=== PATIENT | male | born 1965 | race Caucasian/White ===

== ENCOUNTER → 2024-03-01 13:00 | Outpatient (CLI) | payer OTHER, SELFPAY ==
[2024-03-05 14:40] LABS: Fecal Immunochemical Test Negative (Negative)
== END ==
PROVIDERS: PCP Family Medicine; Visit Provider Family Medicine
DX: Z12.11 Encounter for screening for malignant neoplasm of colon (principal)
CPT/HCPCS: 82274

== ENCOUNTER → 2024-03-22 10:54 | Outpatient (CLI) | payer OTHER, SELFPAY ==
[2024-03-22 19:24] LABS: Add Manual Diff / Slide Review NO; Alanine Aminotransferase 18 IU/L (<50); Albumin 4.4 g/dL (3.5-5.0); Albumin Globulin Ratio 1.5 (1.0-2.8); Alkaline Phosphatase 55 U/L (38-126); Aspartate Aminotransferase 47 IU/L (17-59); BUN Creatinine Ratio 12.8 (6-22); Basophils Absolute Auto 0 /uL (0-100); Basophils Percent Auto 0.8 % (0-2); Bilirubin Total 0.8 mg/dL (0.2-1.3); Blood Urea Nitrogen 10 mg/dL (9-20); Calcium 9.5 mg/dL (8.4-10.2); Carbon Dioxide 29 mmol/L (22-32); Chloride 101 mmol/L (98-107); Cholesterol 171 mg/dL (140-199); Eosinophils Absolute Auto 100 /uL (0-450); Eosinophils Percent Auto 1.9 % (2-4); Estimated Glomerular Filt Rate > 60 mL/min (>60); Globulin 2.9 g/dL (1.7-4.1); Glucose 84 mg/dL (70-100); HDL Cholesterol 56 mg/dL (40-60); HEMOLYSIS < 15 (0-50); Hematocrit 38.2 % (41-53); Hemoglobin 12.8 g/dL (13.5-17.5); LDL Cholesterol Calculated 106 mg/dL (<100); Lymphocytes Absolute Auto 1400 /uL (1100-4500); Lymphocytes Percent Auto 39.7 % (25-40); Mean Corpuscular HGB Conc 33.5 % (30-36); Mean Corpuscular Hemoglobin 29.9 PG (26-34); Mean Corpuscular Volume 89.3 fL (80-100); Monocytes Absolute Auto 300 /uL (0-900); Monocytes Percent Auto 9.8 % (3-14); Neutrophils Absolute Auto 1700 /uL (1500-7000); Neutrophils Percent Auto 47.8 % (50-75); Platelet Count 210 X10^3/uL (150-400); Potassium 4.1 mmol/L (3.4-5.1); Red Blood Cell Count 4.27 X10^6/uL (4.5-5.9); Red Cell Distribution Width 13.5 % (11.6-14.8); Sodium 136 mmol/L (137-145); Total Protein 7.3 g/dL (6.3-8.2); Triglycerides 44 mg/dL (35-150); White Blood Cell Count 3.6 X10^3/uL (4.5-11.0)
[2024-03-22 19:45] LABS: Vitamin D 25 Hydroxy (D3) 45.7 ng/mL (30.0-100.0)
[2024-03-22 20:42] LABS: Prostate Specific Antigen Scrn 1.48 ng/mL (0.1-4.0)
[2024-03-22 21:17] LABS: Folate 17.3 ng/mL (2.76-20.0); Vitamin B12 243 pg/mL (239-931)
== END ==
PROVIDERS: PCP Family Medicine; Visit Provider Family Medicine
DX: Z13.1 Encounter for screening for diabetes mellitus (principal); Z13.6 Encounter for screening for cardiovascular disorders; Z12.5 Encounter for screening for malignant neoplasm of prostate; Z12.11 Encounter for screening for malignant neoplasm of colon; Z13.0 Encounter for screening for diseases of the blood and blood-forming organs and certain disorders involving the immune mechanism; R01.1 Cardiac murmur, unspecified; Z71.3 Dietary counseling and surveillance
CPT/HCPCS: 80053; 80061; 82306; 82607; 82746; 85025; G0103